=== PATIENT | male | born 1940 | race Two or more races ===

== ENCOUNTER → 2018-08-05 | Emergency (ER) | payer OTHER ==
[~2018-08-05] VITALS: Ht 175.3 cm; Wt 72.6 kg
== END | disposition home or self-care (01) ==
LOC: ER 21:26
DX: S01.82XA Laceration with foreign body of other part of head, initial encounter (principal); W18.09XA Striking against other object with subsequent fall, initial encounter; Y93.89 Activity, other specified; Y92.098 Other place in other non-institutional residence as the place of occurrence of the external cause; Y99.8 Other external cause status

== ENCOUNTER → 2018-08-13 | Emergency (ER) | payer OTHER ==
[~2018-08-13] VITALS: Ht 175.3 cm; Wt 72.6 kg
== END | disposition left against medical advice (07) ==
LOC: ER 22:44
DX: Z53.20 Procedure and treatment not carried out because of patient's decision for unspecified reasons (principal)

== ENCOUNTER 2018-08-14 15:58 | Emergency (ER) | payer OTHER ==
[~2018-08-14] VITALS: Ht 170.2 cm; Wt 74.8 kg
== END 2018-08-14 19:29 | disposition home or self-care (01) ==
LOC: ER 15:58
DX: Z48.02 Encounter for removal of sutures (principal)

== ENCOUNTER 2018-11-10 18:36 | Emergency (ER) | payer OTHER ==
[~2018-11-10] VITALS: Ht 175.3 cm; Wt 72.6 kg
== END 2018-11-10 19:50 | disposition home or self-care (01) ==
LOC: ER 18:36
DX: R06.02 Shortness of breath (principal)

== ENCOUNTER 2018-12-09 14:51 | Emergency (ER) | payer OTHER ==
[~2018-12-09] VITALS: Ht 175.3 cm; Wt 77.1 kg
== END 2018-12-10 10:18 | disposition home or self-care (01) ==
LOC: ER 14:51
DX: K56.690 Other partial intestinal obstruction (principal); R14.0 Abdominal distension (gaseous); R11.2 Nausea with vomiting, unspecified; I49.8 Other specified cardiac arrhythmias

== ENCOUNTER 2019-01-10 22:19 | Emergency (ER) | payer OTHER ==
[~2019-01-10] VITALS: Ht 175.3 cm; Wt 72.6 kg
== END 2019-01-11 00:23 | disposition left against medical advice (07) ==
LOC: ER 22:19
DX: Z53.20 Procedure and treatment not carried out because of patient's decision for unspecified reasons (principal)

== ENCOUNTER → 2019-04-25 | Outpatient (CLI) | payer OTHER | END | disposition home or self-care (01) | LOC: RAD 12:12 | DX: M54.5 Low back pain (principal) ==

== ENCOUNTER 2019-04-30 17:21 | Emergency (ER) | payer OTHER ==
[~2019-04-30] VITALS: Ht 175.3 cm; Wt 766.6 kg
== END 2019-04-30 21:08 | disposition home or self-care (01) ==
LOC: ER 17:21
DX: R42 Dizziness and giddiness (principal)

== ENCOUNTER 2019-05-29 17:47 | Emergency (ER) | payer OTHER ==
[~2019-05-29] VITALS: Ht 175.3 cm; Wt 72.6 kg
== END 2019-05-29 20:46 | disposition home or self-care (01) ==
LOC: ER 17:47
DX: I49.8 Other specified cardiac arrhythmias (principal); R00.2 Palpitations

== ENCOUNTER 2020-08-20 13:34 | Outpatient (CLI) | payer OTHER | END 2020-08-20 13:43 | disposition home or self-care (01) | LOC: RAD 13:34 | PROVIDERS: ATTEND Orthopaedic Surgery | DX: M54.5 Low back pain (principal); M25.572 Pain in left ankle and joints of left foot; M25.552 Pain in left hip ==

== ENCOUNTER 2020-09-11 15:39 | Outpatient (CLI) | payer OTHER ==
[2020-09-25] MEDS ORDERED: CVS DAILY MULT1 EAC2 PO (15:54)
== END 2020-09-11 15:40 | disposition home or self-care (01) ==
LOC: NUCLEAR 15:39
PROVIDERS: ATTEND Orthopaedic Surgery
DX: M81.0 Age-related osteoporosis without current pathological fracture (principal)

== ENCOUNTER 2020-09-12 14:09 | Outpatient (CLI) | payer OTHER ==
[2020-09-25] MEDS ORDERED: CVS DAILY MULT1 EAC2 PO (15:54)
== END 2020-09-12 14:53 | disposition home or self-care (01) ==
LOC: LAB 14:09
PROVIDERS: ATTEND Orthopaedic Surgery
DX: D64.89 Other specified anemias (principal); E88.89 Other specified metabolic disorders; D68.8 Other specified coagulation defects; N39.0 Urinary tract infection, site not specified; Z22.322 Carrier or suspected carrier of Methicillin resistant Staphylococcus aureus; M16.12 Unilateral primary osteoarthritis, left hip; Z76.89 Persons encountering health services in other specified circumstances

== ENCOUNTER 2020-09-15 15:37 | Outpatient (CLI) | payer OTHER ==
[2020-09-25] MEDS ORDERED: CVS DAILY MULT1 EAC2 PO (15:54)
== END 2020-09-15 15:43 | disposition home or self-care (01) ==
LOC: EKG 15:37
PROVIDERS: ATTEND Orthopaedic Surgery
DX: I49.8 Other specified cardiac arrhythmias (principal)

== ENCOUNTER → 2020-09-25 08:00 | Outpatient (CLI) | payer OTHER ==
[~2020-09-25] VITALS: Ht 175.3 cm; Wt 70.3 kg
[~2020-09-25 08:00] MED LIST: CVS DAILY MULT1 EAC2 PO
== END | disposition home or self-care (01) ==
LOC: LAB 08:00 → SURH 09-29 07:00 → EDSTATUS 09-29 12:45
PROVIDERS: ATTEND Orthopaedic Surgery
DX: Z03.818 Encounter for observation for suspected exposure to other biological agents ruled out (principal)